=== PATIENT | male | born 1930 | race Caucasian/White ===

== ENCOUNTER 2016-05-21 07:30 | Outpatient (CLI) | payer MEDICARE, OTHER ==
[2016-05-21 08:12] LABS: Anion Gap 10 mmol/L (10-20); BUN (Urea Nitrogen) 11 mg/dL (8.4-25.7); Calc. Creatinine Clearance 0 mL/min (70-130); Calcium 7.8 mg/dL (7.8-10.44); Carbon Dioxide 31 mmol/L (23-31); Chloride 102 mmol/L (98-107); Estimated GFR-MDRD 35
[2016-05-21 08:30] LABS: #Eosinphils 0.2 thou/uL (0.0-0.7); #Lymphocytes 1.3 thou/uL (1.20-3.40); #Monocytes 0.5 thou/uL (0.11-0.59); #Neutrophils 2.2 thou/uL (1.40-6.50); %Eosinophils 3.9 % (0.0-10.0); %Monocytes 12.1 % (0.0-10.0); Hematocrit 27.4 % (42.0-52.0); Mean Platelet Volume 5.9 fL (7.4-10.4); Red Blood Cell (RBC) Count 2.71 mill/uL (4.70-6.10); White Blood Cell (WBC) Count 4.2 thou/uL (4.8-10.8)
== END 2016-05-21 07:31 | disposition home or self-care (01) ==
LOC: NAV LABSP 07:30
PROVIDERS: ATTEND Internal Medicine
DX: E11.9 Type 2 diabetes mellitus without complications (principal); I10 Essential (primary) hypertension
CPT/HCPCS: 36415; 80048; 85025

== ENCOUNTER 2016-05-28 10:31 | Outpatient (CLI) | payer MEDICARE, OTHER ==
[2016-05-28 11:20] LABS: #Basophils 0.1 thou/uL (0.0-0.2); #Eosinphils 0.3 thou/uL (0.0-0.7); #Lymphocytes 1.3 thou/uL (1.20-3.40); #Monocytes 0.5 thou/uL (0.11-0.59); %Basophils 1.5 % (0.0-1.0); %Eosinophils 6.4 % (0.0-10.0); Hematocrit 28.6 % (42.0-52.0); Mean Platelet Volume 5.6 fL (7.4-10.4); Red Blood Cell (RBC) Count 2.79 mill/uL (4.70-6.10)
[2016-05-28 11:31] LABS: Anion Gap 14 mmol/L (10-20); BUN (Urea Nitrogen) 14 mg/dL (8.4-25.7); Calc. Creatinine Clearance 0 mL/min (70-130); Calcium 7.9 mg/dL (7.8-10.44); Carbon Dioxide 29 mmol/L (23-31); Chloride 103 mmol/L (98-107); Estimated GFR-MDRD 33
== END 2016-05-28 10:32 | disposition home or self-care (01) ==
LOC: NAV LABSP 10:31
PROVIDERS: ATTEND Internal Medicine
DX: E11.9 Type 2 diabetes mellitus without complications (principal); I10 Essential (primary) hypertension
CPT/HCPCS: 36415; 80048; 85025

== ENCOUNTER 2016-06-04 10:12 | Outpatient (CLI) | payer MEDICARE, OTHER ==
[2016-06-04 10:48] LABS: #Eosinphils 0.2 thou/uL (0.0-0.7); #Lymphocytes 1.1 thou/uL (1.20-3.40); #Monocytes 0.4 thou/uL (0.11-0.59); #Neutrophils 1.9 thou/uL (1.40-6.50); %Eosinophils 5.6 % (0.0-10.0); %Lymphocytes 29.8 % (21.0-51.0); %Monocytes 10.8 % (0.0-10.0); Red Blood Cell (RBC) Count 2.87 mill/uL (4.70-6.10); White Blood Cell (WBC) Count 3.7 thou/uL (4.8-10.8)
[2016-06-04 11:00] LABS: Anion Gap 12 mmol/L (10-20); BUN (Urea Nitrogen) 14 mg/dL (8.4-25.7); Calc. Creatinine Clearance 0 mL/min (70-130); Carbon Dioxide 32 mmol/L (23-31); Chloride 102 mmol/L (98-107); Estimated GFR-MDRD 32
== END 2016-06-04 10:13 | disposition home or self-care (01) ==
LOC: NAV LABSP 10:12
PROVIDERS: ATTEND Internal Medicine
DX: E11.9 Type 2 diabetes mellitus without complications (principal); I10 Essential (primary) hypertension
CPT/HCPCS: 36415; 80048; 85025

== ENCOUNTER 2016-06-11 08:42 | Outpatient (CLI) | payer MEDICARE, OTHER ==
[2016-06-11 09:46] LABS: #Eosinphils 0.4 thou/uL (0.0-0.7); #Monocytes 0.5 thou/uL (0.11-0.59); #Neutrophils 2.7 thou/uL (1.40-6.50); %Eosinophils 7.9 % (0.0-10.0); %Lymphocytes 21.2 % (21.0-51.0); %Monocytes 11.4 % (0.0-10.0); Hematocrit 29.4 % (42.0-52.0); Mean Platelet Volume 6.1 fL (7.4-10.4); Red Blood Cell (RBC) Count 2.91 mill/uL (4.70-6.10); White Blood Cell (WBC) Count 4.5 thou/uL (4.8-10.8)
[2016-06-11 09:57] LABS: Anion Gap 12 mmol/L (10-20); BUN (Urea Nitrogen) 15 mg/dL (8.4-25.7); Calc. Creatinine Clearance 0 mL/min (70-130); Carbon Dioxide 30 mmol/L (23-31); Chloride 102 mmol/L (98-107); Estimated GFR-MDRD 32
== END 2016-06-11 08:43 | disposition home or self-care (01) ==
LOC: NAV LAB 08:42
PROVIDERS: ATTEND Internal Medicine
DX: E11.9 Type 2 diabetes mellitus without complications (principal); I10 Essential (primary) hypertension
CPT/HCPCS: 36415; 80048; 85025

== ENCOUNTER 2016-06-18 08:43 | Outpatient (CLI) | payer MEDICARE, OTHER ==
[2016-06-18 09:27] LABS: #Basophils 0.1 thou/uL (0.0-0.2); #Eosinphils 0.3 thou/uL (0.0-0.7); #Lymphocytes 1.1 thou/uL (1.20-3.40); #Monocytes 0.5 thou/uL (0.11-0.59); #Neutrophils 2.1 thou/uL (1.40-6.50); %Basophils 1.5 % (0.0-1.0); %Eosinophils 7.8 % (0.0-10.0); %Lymphocytes 27.6 % (21.0-51.0); %Monocytes 11.7 % (0.0-10.0); Hematocrit 29.6 % (42.0-52.0); Mean Platelet Volume 5.2 fL (7.4-10.4); Red Blood Cell (RBC) Count 3.01 mill/uL (4.70-6.10); White Blood Cell (WBC) Count 4.1 thou/uL (4.8-10.8)
[2016-06-18 09:36] LABS: Anion Gap 15 mmol/L (10-20); BUN (Urea Nitrogen) 15 mg/dL (8.4-25.7); Calc. Creatinine Clearance 0 mL/min (70-130); Calcium 8.2 mg/dL (7.8-10.44); Carbon Dioxide 28 mmol/L (23-31); Chloride 101 mmol/L (98-107); Estimated GFR-MDRD 31
== END 2016-06-18 08:44 | disposition home or self-care (01) ==
LOC: NAV LABSP 08:43
PROVIDERS: ATTEND Internal Medicine
DX: E11.9 Type 2 diabetes mellitus without complications (principal); I10 Essential (primary) hypertension
CPT/HCPCS: 36415; 80048; 85025

== ENCOUNTER 2016-06-25 08:22 | Outpatient (CLI) | payer MEDICARE, OTHER ==
[2016-06-25 09:33] LABS: #Eosinphils 0.3 thou/uL (0.0-0.7); #Monocytes 0.6 thou/uL (0.11-0.59); %Basophils 0.9 % (0.0-1.0); %Eosinophils 6.4 % (0.0-10.0); %Lymphocytes 20.8 % (21.0-51.0); Hematocrit 30.9 % (42.0-52.0); Mean Platelet Volume 5.4 fL (7.4-10.4); Red Blood Cell (RBC) Count 3.12 mill/uL (4.70-6.10)
[2016-06-25 09:42] LABS: Anion Gap 15 mmol/L (10-20); BUN (Urea Nitrogen) 14 mg/dL (8.4-25.7); Calc. Creatinine Clearance 0 mL/min (70-130); Calcium 8.5 mg/dL (7.8-10.44); Carbon Dioxide 30 mmol/L (23-31); Chloride 102 mmol/L (98-107); Estimated GFR-MDRD 29
== END 2016-06-25 08:23 | disposition home or self-care (01) ==
LOC: NAV LABSP 08:22
PROVIDERS: ATTEND Internal Medicine
DX: E11.9 Type 2 diabetes mellitus without complications (principal); I10 Essential (primary) hypertension
CPT/HCPCS: 36415; 80048; 85025

== ENCOUNTER 2016-06-30 12:00 | Emergency (ER) | payer MEDICARE, OTHER ==
[2016-06-30 12:34] LABS: #Basophils 0.1 thou/uL (0.0-0.2); #Eosinphils 0.3 thou/uL (0.0-0.7); #Lymphocytes 0.9 thou/uL (1.20-3.40); #Monocytes 0.6 thou/uL (0.11-0.59); #Neutrophils 5.8 thou/uL (1.40-6.50); %Basophils 0.8 % (0.0-1.0); %Eosinophils 4.1 % (0.0-10.0); %Lymphocytes 11.1 % (21.0-51.0); %Monocytes 8.3 % (0.0-10.0); Hematocrit 34.1 % (42.0-52.0); Mean Platelet Volume 5.5 fL (7.4-10.4); Red Blood Cell (RBC) Count 3.49 mill/uL (4.70-6.10); White Blood Cell (WBC) Count 7.7 thou/uL (4.8-10.8)
[2016-06-30 12:52] LABS: Prothrombin Time 14.7 SEC (12.0-14.7)
[2016-06-30 12:53] LABS: ALT (SGPT) 12 U/L (0-55); AST (SGOT) 16 U/L (5-34); Alkaline Phosphatase 84 U/L (40-150); Anion Gap 19 mmol/L (10-20); BUN (Urea Nitrogen) 22 mg/dL (8.4-25.7); Bilirubin, Total 0.4 mg/dL (0.2-1.2); CK (CPK) 93 U/L (30-200); Calc. Creatinine Clearance 0 mL/min (70-130); Calcium 8.5 mg/dL (7.8-10.44); Carbon Dioxide 23 mmol/L (23-31); Chloride 101 mmol/L (98-107); Estimated GFR-MDRD 17; Globulin 3.3 g/dL (2.4-3.5); PTT 33.3 SEC (22.9-36.1); Protein, Total 6.5 g/dL (5.8-8.1)
[2016-06-30 12:55] LABS: Troponin I 0.102 ng/mL (< 0.028)
[2016-06-30] MEDS ORDERED: Morphine Sulfate 2 MG/ML SYRINGE ONE (13:03)
[2016-06-30] MEDS ORDERED: Enoxaparin Sodium 100 MG/ML SYRINGE ONE (15:15)
--- NOTE | 2016-06-30 15:39 | RAD ---
FRONTAL VIEW CHEST: Comparison: 04-17-16 Clinical history: Shortness of breath. FINDINGS: Tunneled right side vascular catheter is again seen. There is stable prominence to the cardiomedias tinal silhouette and prominence of the lungs is present without lobar consolidation. Prior linear d ensities over the right lower lung zone have resolved. There is mild blunting of the left lateral c ostophrenic sulcus, grossly stable in appearance. IMPRESSION: 1. Evidence of CHF. 2. Resolution of prior right basilar atelectasis. 3. Mild blunting of the left lateral costophrenic sulci could related to small volume pleural fluid . POS: [facility]
== END 2016-06-30 16:52 | disposition short-term general hospital (02) ==
LOC: NAV ERS 12:00
DX: I13.2 Hypertensive heart and chronic kidney disease with heart failure and with stage 5 chronic kidney disease, or end stage renal disease (principal); N18.6 End stage renal disease; I50.9 Heart failure, unspecified; E78.5 Hyperlipidemia, unspecified; E11.9 Type 2 diabetes mellitus without complications; Z87.891 Personal history of nicotine dependence; Z79.899 Other long term (current) drug therapy
CPT/HCPCS: 71010; 80053; 82553; 83880; 84484; 85025; 85610; 85730; 93005; 96372; J1650; J2270

== ENCOUNTER 2016-07-16 06:59 | Outpatient (CLI) | payer MEDICARE, OTHER ==
[2016-07-16 08:53] LABS: Prothrombin Time 38.4 SEC (12.0-14.7)
[2016-07-16 09:56] LABS: #Basophils 0.1 thou/uL (0.0-0.2); #Eosinphils 0.2 thou/uL (0.0-0.7); #Lymphocytes 1.5 thou/uL (1.20-3.40); #Monocytes 0.5 thou/uL (0.11-0.59); #Neutrophils 2.3 thou/uL (1.40-6.50); %Basophils 1.1 % (0.0-1.0); %Eosinophils 4.3 % (0.0-10.0); %Lymphocytes 33.5 % (21.0-51.0); %Monocytes 10.4 % (0.0-10.0); Mean Platelet Volume 5.1 fL (7.4-10.4); Red Blood Cell (RBC) Count 3.52 mill/uL (4.70-6.10); White Blood Cell (WBC) Count 4.5 thou/uL (4.8-10.8)
[2016-07-16 10:07] LABS: Anion Gap 17 mmol/L (10-20); BUN (Urea Nitrogen) 19 mg/dL (8.4-25.7); Calc. Creatinine Clearance 0 mL/min (70-130); Calcium 8.4 mg/dL (7.8-10.44); Carbon Dioxide 25 mmol/L (23-31); Chloride 101 mmol/L (98-107); Estimated GFR-MDRD 27
== END 2016-07-16 07:00 | disposition home or self-care (01) ==
LOC: NAV LABSP 06:59
PROVIDERS: ATTEND Internal Medicine
DX: Z51.81 Encounter for therapeutic drug level monitoring (principal); Z79.01 Long term (current) use of anticoagulants; I10 Essential (primary) hypertension; E11.9 Type 2 diabetes mellitus without complications; Z79.899 Other long term (current) drug therapy
CPT/HCPCS: 36415; 80048; 85025; 85610

== ENCOUNTER 2016-07-17 09:24 | Outpatient (CLI) | payer MEDICARE, OTHER ==
[2016-07-17 09:56] LABS: Prothrombin Time 46.1 SEC (12.0-14.7)
== END 2016-07-17 09:25 | disposition home or self-care (01) ==
LOC: NAV LABSP 09:24
PROVIDERS: ATTEND Internal Medicine
DX: Z79.01 Long term (current) use of anticoagulants (principal); Z79.899 Other long term (current) drug therapy
CPT/HCPCS: 36415; 85610

== ENCOUNTER 2016-07-18 07:10 | Outpatient (CLI) | payer MEDICARE, OTHER ==
[2016-07-18 09:53] LABS: Prothrombin Time 43.8 SEC (12.0-14.7)
== END 2016-07-18 07:11 | disposition home or self-care (01) ==
LOC: NAV LABSP 07:10
PROVIDERS: ATTEND Internal Medicine
DX: E11.9 Type 2 diabetes mellitus without complications (principal); I10 Essential (primary) hypertension; Z79.01 Long term (current) use of anticoagulants
CPT/HCPCS: 36415; 85610

== ENCOUNTER 2016-07-19 10:07 | Outpatient (CLI) | payer MEDICARE, OTHER ==
[2016-07-19 12:30] LABS: Prothrombin Time 36.1 SEC (12.0-14.7)
== END 2016-07-19 10:08 | disposition home or self-care (01) ==
LOC: NAV LABSP 10:07
PROVIDERS: ATTEND Internal Medicine
DX: K29.90 Gastroduodenitis, unspecified, without bleeding (principal)
CPT/HCPCS: 36415; 85610

== ENCOUNTER 2016-07-22 08:16 | Outpatient (CLI) | payer MEDICARE, OTHER ==
[2016-07-22 08:57] LABS: Anion Gap 18 mmol/L (10-20); BUN (Urea Nitrogen) 35 mg/dL (8.4-25.7); Calc. Creatinine Clearance 0 mL/min (70-130); Calcium 8.6 mg/dL (7.8-10.44); Carbon Dioxide 23 mmol/L (23-31); Chloride 104 mmol/L (98-107); Estimated GFR-MDRD 15
[2016-07-22 09:01] LABS: #Eosinphils 0.3 thou/uL (0.0-0.7); #Lymphocytes 1.4 thou/uL (1.20-3.40); #Monocytes 0.5 thou/uL (0.11-0.59); #Neutrophils 2.7 thou/uL (1.40-6.50); %Eosinophils 6.2 % (0.0-10.0); %Lymphocytes 28.1 % (21.0-51.0); %Monocytes 9.7 % (0.0-10.0); Hematocrit 33.1 % (42.0-52.0); Mean Platelet Volume 5.4 fL (7.4-10.4); White Blood Cell (WBC) Count 4.8 thou/uL (4.8-10.8)
[2016-07-22 09:10] LABS: Prothrombin Time 17.5 SEC (12.0-14.7)
== END 2016-07-22 08:17 | disposition home or self-care (01) ==
LOC: NAV LABSP 08:16
PROVIDERS: ATTEND Internal Medicine
DX: E11.9 Type 2 diabetes mellitus without complications (principal); I10 Essential (primary) hypertension
CPT/HCPCS: 36415; 80048; 85025; 85610

== ENCOUNTER 2016-07-23 08:40 | Outpatient (CLI) | payer MEDICARE, OTHER ==
[2016-07-23 09:54] LABS: Prothrombin Time 14.6 SEC (12.0-14.7)
== END 2016-07-23 08:41 | disposition home or self-care (01) ==
LOC: NAV LABSP 08:40
PROVIDERS: ATTEND Internal Medicine
DX: K29.90 Gastroduodenitis, unspecified, without bleeding (principal)
CPT/HCPCS: 36415; 85610

== ENCOUNTER 2016-07-24 07:33 | Outpatient (CLI) | payer MEDICARE, OTHER ==
[2016-07-24 11:02] LABS: Prothrombin Time 15.8 SEC (12.0-14.7)
== END 2016-07-24 07:34 | disposition home or self-care (01) ==
LOC: NAV LABSP 07:33
PROVIDERS: ATTEND Internal Medicine
DX: K29.90 Gastroduodenitis, unspecified, without bleeding (principal)
CPT/HCPCS: 36415; 85610

== ENCOUNTER 2016-07-25 07:30 | Outpatient (CLI) | payer MEDICARE, OTHER ==
[2016-07-25 13:43] LABS: Prothrombin Time 19.4 SEC (12.0-14.7)
== END 2016-07-25 07:31 | disposition home or self-care (01) ==
LOC: NAV LABSP 07:30
PROVIDERS: ATTEND Internal Medicine
DX: E11.9 Type 2 diabetes mellitus without complications (principal); I10 Essential (primary) hypertension; I74.9 Embolism and thrombosis of unspecified artery; K29.90 Gastroduodenitis, unspecified, without bleeding
CPT/HCPCS: 36415; 85610

== ENCOUNTER 2016-07-26 07:48 | Outpatient (CLI) | payer MEDICARE, OTHER ==
[2016-07-26 10:06] LABS: Prothrombin Time 20.5 SEC (12.0-14.7)
== END 2016-07-26 07:49 | disposition home or self-care (01) ==
LOC: NAV LABSP 07:48
PROVIDERS: ATTEND Internal Medicine
DX: K29.90 Gastroduodenitis, unspecified, without bleeding (principal)
CPT/HCPCS: 36415; 85610

== ENCOUNTER 2016-07-27 18:03 | Outpatient (CLI) | payer MEDICARE, OTHER ==
[2016-07-27 18:13] LABS: Prothrombin Time 23.1 SEC (12.0-14.7)
== END 2016-07-27 18:04 | disposition home or self-care (01) ==
LOC: NAV LABSP 18:03
PROVIDERS: ATTEND Internal Medicine
DX: K29.90 Gastroduodenitis, unspecified, without bleeding (principal)
CPT/HCPCS: 36415; 85610

== ENCOUNTER 2016-07-28 11:20 | Outpatient (CLI) | payer MEDICARE, OTHER ==
[2016-07-28 12:11] LABS: Prothrombin Time 23.8 SEC (12.0-14.7)
== END 2016-07-28 11:21 | disposition home or self-care (01) ==
LOC: NAV LABSP 11:20
PROVIDERS: ATTEND Internal Medicine
DX: K29.90 Gastroduodenitis, unspecified, without bleeding (principal)
CPT/HCPCS: 36415; 85610

== ENCOUNTER 2016-07-29 09:03 | Outpatient (CLI) | payer MEDICARE, OTHER ==
[2016-07-29 12:00] LABS: Prothrombin Time 46.1 SEC (12.0-14.7)
== END 2016-07-29 09:04 | disposition home or self-care (01) ==
LOC: NAV LABSP 09:03
PROVIDERS: ATTEND Internal Medicine
DX: Z51.81 Encounter for therapeutic drug level monitoring (principal); Z79.01 Long term (current) use of anticoagulants
CPT/HCPCS: 85610

== ENCOUNTER 2016-07-30 07:37 | Outpatient (CLI) | payer MEDICARE, OTHER ==
[2016-07-30 08:40] LABS: #Basophils 0.1 thou/uL (0.0-0.2); #Eosinphils 0.4 thou/uL (0.0-0.7); #Lymphocytes 1.3 thou/uL (1.20-3.40); #Monocytes 0.5 thou/uL (0.11-0.59); #Neutrophils 2.5 thou/uL (1.40-6.50); %Basophils 1.2 % (0.0-1.0); %Eosinophils 9.2 % (0.0-10.0); %Lymphocytes 27.5 % (21.0-51.0); %Monocytes 9.5 % (0.0-10.0); Hematocrit 37.5 % (42.0-52.0); Mean Platelet Volume 5.4 fL (7.4-10.4); Red Blood Cell (RBC) Count 3.81 mill/uL (4.70-6.10); White Blood Cell (WBC) Count 4.8 thou/uL (4.8-10.8)
[2016-07-30 08:43] LABS: Prothrombin Time 27.5 SEC (12.0-14.7)
[2016-07-30 08:50] LABS: Anion Gap 16 mmol/L (10-20); BUN (Urea Nitrogen) 43 mg/dL (8.4-25.7); Calc. Creatinine Clearance 0 mL/min (70-130); Calcium 8.7 mg/dL (7.8-10.44); Carbon Dioxide 26 mmol/L (23-31); Chloride 101 mmol/L (98-107); Estimated GFR-MDRD 16
== END 2016-07-30 07:38 | disposition home or self-care (01) ==
LOC: NAV LABSP 07:37
PROVIDERS: ATTEND Internal Medicine
DX: E11.9 Type 2 diabetes mellitus without complications (principal); I74.9 Embolism and thrombosis of unspecified artery; I10 Essential (primary) hypertension; Z79.01 Long term (current) use of anticoagulants
CPT/HCPCS: 36415; 80048; 85025; 85610

== ENCOUNTER 2016-07-31 10:37 | Outpatient (CLI) | payer MEDICARE, OTHER ==
[2016-07-31 11:04] LABS: Prothrombin Time 24.3 SEC (12.0-14.7)
== END 2016-07-31 10:38 | disposition home or self-care (01) ==
LOC: NAV LABSP 10:37
PROVIDERS: ATTEND Internal Medicine
DX: K29.90 Gastroduodenitis, unspecified, without bleeding (principal)
CPT/HCPCS: 36415; 85610

== ENCOUNTER 2016-08-05 10:51 | Outpatient (CLI) | payer MEDICARE, OTHER ==
[2016-08-05 11:18] LABS: Prothrombin Time 23.1 SEC (12.0-14.7)
== END 2016-08-05 10:52 | disposition home or self-care (01) ==
LOC: NAV LABSP 10:51
PROVIDERS: ATTEND Internal Medicine
DX: Z51.81 Encounter for therapeutic drug level monitoring (principal); Z79.01 Long term (current) use of anticoagulants
CPT/HCPCS: 36415; 85610

== ENCOUNTER 2016-08-06 07:26 | Outpatient (CLI) | payer MEDICARE, OTHER ==
[2016-08-06 09:29] LABS: Anion Gap 16 mmol/L (10-20); BUN (Urea Nitrogen) 35 mg/dL (8.4-25.7); Calc. Creatinine Clearance 0 mL/min (70-130); Calcium 8.2 mg/dL (7.8-10.44); Carbon Dioxide 24 mmol/L (23-31); Chloride 103 mmol/L (98-107); Estimated GFR-MDRD 17; Glucose 95 mg/dL (83-110); Potassium 3.9 mmol/L (3.5-5.1); Sodium 139 mmol/L (136-145)
[2016-08-06 11:22] LABS: INR-International Normal Ratio 2.1; Prothrombin Time 24.3 SEC (12.0-14.7)
== END 2016-08-06 07:27 | disposition home or self-care (01) ==
LOC: NAV LABSP 07:26
PROVIDERS: ATTEND Internal Medicine
DX: E11.9 Type 2 diabetes mellitus without complications (principal); I10 Essential (primary) hypertension
CPT/HCPCS: 36415; 80048; 85610

== ENCOUNTER 2016-08-07 07:40 | Outpatient (CLI) | payer MEDICARE, OTHER ==
[2016-08-07 08:29] LABS: #Eosinphils 0.5 thou/uL (0.0-0.7); #Lymphocytes 0.8 thou/uL (1.20-3.40); #Monocytes 0.4 thou/uL (0.11-0.59); %Basophils 1.2 % (0.0-1.0); %Eosinophils 12.7 % (0.0-10.0); %Lymphocytes 20.6 % (21.0-51.0); %Monocytes 11.8 % (0.0-10.0); %Neutrophils 53.6 % (42.0-75.0); Hemoglobin 11.6 g/dL (14.0-18.0); Mean Corpuscular HGB CONC 31.5 g/dL (32.0-36.0); Mean Corpuscular Hemoglobin 31.3 pg (27.0-31.0); Mean Corpuscular Volume 99.5 fl (80.0-94.0); Mean Platelet Volume 5.1 fL (7.4-10.4); Platelet Count 146 thou/uL (130-400); RBC Distribution Width 15.6 % (11.5-14.5); Red Blood Cell (RBC) Count 3.71 mill/uL (4.70-6.10); White Blood Cell (WBC) Count 3.7 thou/uL (4.8-10.8)
[2016-08-07 09:40] LABS: INR-International Normal Ratio 2.1
== END 2016-08-07 07:41 | disposition home or self-care (01) ==
LOC: NAV LABSP 07:40
PROVIDERS: ATTEND Internal Medicine
DX: I10 Essential (primary) hypertension (principal); Z79.01 Long term (current) use of anticoagulants
CPT/HCPCS: 36415; 85025; 85610

== ENCOUNTER 2016-08-08 11:14 | Outpatient (CLI) | payer MEDICARE, OTHER ==
[2016-08-08 11:47] LABS: Prothrombin Time 46.1 SEC (12.0-14.7)
[2016-08-08 11:51] LABS: INR-International Normal Ratio 5.2
== END 2016-08-08 11:15 | disposition home or self-care (01) ==
LOC: NAVSJIPCSP 11:14
PROVIDERS: ATTEND Internal Medicine
DX: Z51.81 Encounter for therapeutic drug level monitoring (principal); Z79.899 Other long term (current) drug therapy
CPT/HCPCS: 36415

== ENCOUNTER 2016-08-10 17:06 | Outpatient (CLI) | payer MEDICARE, OTHER ==
[2016-08-10 17:37] LABS: INR-International Normal Ratio 1.5
== END 2016-08-10 17:07 | disposition home or self-care (01) ==
LOC: NAV LABSP 17:06
PROVIDERS: ATTEND Internal Medicine
DX: K29.90 Gastroduodenitis, unspecified, without bleeding (principal)
CPT/HCPCS: 36415; 85610

== ENCOUNTER 2016-08-11 10:16 | Outpatient (CLI) | payer MEDICARE, OTHER ==
[2016-08-11 10:32] LABS: INR-International Normal Ratio 1.4; Prothrombin Time 17.7 SEC (12.0-14.7)
[2016-08-11 10:37] LABS: Follow-up Coag Comp? YES; Follow-up Result - Coag REPORT FAXED
== END 2016-08-11 10:17 | disposition home or self-care (01) ==
LOC: NAV LABSP 10:16
PROVIDERS: ATTEND Internal Medicine
DX: Z51.81 Encounter for therapeutic drug level monitoring (principal); Z79.01 Long term (current) use of anticoagulants
CPT/HCPCS: 36415; 85610

== ENCOUNTER 2016-08-12 08:39 | Outpatient (CLI) | payer MEDICARE, OTHER ==
[2016-08-12 09:38] LABS: INR-International Normal Ratio 1.5; Prothrombin Time 18.3 SEC (12.0-14.7)
[2016-08-12 15:14] LABS: #Eosinphils 0.6 thou/uL (0.0-0.7); #Lymphocytes 1.7 thou/uL (1.20-3.40); #Monocytes 0.5 thou/uL (0.11-0.59); #Neutrophils 1.6 thou/uL (1.40-6.50); %Basophils 0.8 % (0.0-1.0); %Eosinophils 13.5 % (0.0-10.0); %Lymphocytes 37.7 % (21.0-51.0); %Monocytes 10.9 % (0.0-10.0); %Neutrophils 37.2 % (42.0-75.0); Hemoglobin 11.9 g/dL (14.0-18.0); Mean Corpuscular HGB CONC 31.5 g/dL (32.0-36.0); Mean Corpuscular Hemoglobin 32.2 pg (27.0-31.0); Mean Platelet Volume 6.8 fL (7.4-10.4); Platelet Count 135 thou/uL (130-400); RBC Distribution Width 15.3 % (11.5-14.5); White Blood Cell (WBC) Count 4.4 thou/uL (4.8-10.8)
[2016-08-12 15:28] LABS: Anion Gap 14 mmol/L (10-20); BUN (Urea Nitrogen) 30 mg/dL (8.4-25.7); Calc. Creatinine Clearance 0 mL/min (70-130); Calcium 8.2 mg/dL (7.8-10.44); Carbon Dioxide 26 mmol/L (23-31); Chloride 106 mmol/L (98-107); Estimated GFR-MDRD 19; Glucose 100 mg/dL (83-110); Potassium 3.7 mmol/L (3.5-5.1); Sodium 142 mmol/L (136-145)
== END 2016-08-12 08:40 | disposition home or self-care (01) ==
LOC: NAV LABSP 08:39
PROVIDERS: ATTEND Internal Medicine
DX: K29.90 Gastroduodenitis, unspecified, without bleeding (principal); E11.9 Type 2 diabetes mellitus without complications; I10 Essential (primary) hypertension
CPT/HCPCS: 36415; 80048; 85025; 85610

== ENCOUNTER 2016-08-13 07:40 | Outpatient (CLI) | payer MEDICARE, OTHER ==
[2016-08-13 10:00] LABS: Prothrombin Time 46.1 SEC (12.0-14.7)
[2016-08-13 10:01] LABS: INR-International Normal Ratio 5.2
== END 2016-08-13 07:41 | disposition home or self-care (01) ==
LOC: NAV LABSP 07:40
PROVIDERS: ATTEND Internal Medicine
DX: K29.90 Gastroduodenitis, unspecified, without bleeding (principal)
CPT/HCPCS: 36415; 85610

== ENCOUNTER 2016-08-14 07:17 | Outpatient (CLI) | payer MEDICARE, OTHER ==
[2016-08-14 08:07] LABS: INR-International Normal Ratio 1.5; Prothrombin Time 18.6 SEC (12.0-14.7)
== END 2016-08-14 07:18 | disposition home or self-care (01) ==
LOC: NAV LABSP 07:17
PROVIDERS: ATTEND Internal Medicine
DX: Z51.81 Encounter for therapeutic drug level monitoring (principal); Z79.01 Long term (current) use of anticoagulants
CPT/HCPCS: 36415; 85610

== ENCOUNTER 2016-08-16 07:32 | Outpatient (CLI) | payer MEDICARE, OTHER ==
[2016-08-16 10:56] LABS: Anisocytosis MODERATE=16-30 cells (100X) (0-5/hpf); Eosinophils 6 % (0-10); Hemoglobin 11.7 g/dL (14.0-18.0); Hypochromia SLIGHT = 6-15 cells (100X) (0-5/hpf); Lymphocytes 46 % (21-51); MDiff Complete? YES; Mean Corpuscular HGB CONC 31.7 g/dL (32.0-36.0); Mean Corpuscular Hemoglobin 31.9 pg (27.0-31.0); Mean Platelet Volume 6.2 fL (7.4-10.4); Monocytes 2 % (0-10); Neutrophil 45 % (42-75); PLT Morphology Comment Appears Adequate; Platelet Count 122 thou/uL (130-400); RBC Distribution Width 14.9 % (11.5-14.5); Red Blood Cell (RBC) Count 3.68 mill/uL (4.70-6.10); White Blood Cell (WBC) Count 4.8 thou/uL (4.8-10.8)
== END 2016-08-16 07:33 | disposition home or self-care (01) ==
LOC: NAV LABSP 07:32
PROVIDERS: ATTEND Internal Medicine
DX: K29.90 Gastroduodenitis, unspecified, without bleeding (principal)
CPT/HCPCS: 36415; 85025

== ENCOUNTER 2016-08-20 07:22 | Outpatient (CLI) | payer MEDICARE, OTHER ==
[2016-08-20 08:09] LABS: #Basophils 0.1 thou/uL (0.0-0.2); #Eosinphils 0.6 thou/uL (0.0-0.7); #Lymphocytes 1.2 thou/uL (1.20-3.40); #Monocytes 0.5 thou/uL (0.11-0.59); #Neutrophils 2.2 thou/uL (1.40-6.50); %Basophils 1.3 % (0.0-1.0); %Eosinophils 12.8 % (0.0-10.0); %Lymphocytes 26.4 % (21.0-51.0); %Monocytes 10.4 % (0.0-10.0); %Neutrophils 49.1 % (42.0-75.0); Hemoglobin 11.1 g/dL (14.0-18.0); Mean Corpuscular HGB CONC 31.8 g/dL (32.0-36.0); Mean Corpuscular Hemoglobin 32.3 pg (27.0-31.0); Mean Platelet Volume 5.9 fL (7.4-10.4); Platelet Count 138 thou/uL (130-400); RBC Distribution Width 14.8 % (11.5-14.5); Red Blood Cell (RBC) Count 3.45 mill/uL (4.70-6.10); White Blood Cell (WBC) Count 4.5 thou/uL (4.8-10.8)
[2016-08-20 08:23] LABS: Anion Gap 16 mmol/L (10-20); BUN (Urea Nitrogen) 41 mg/dL (8.4-25.7); Calc. Creatinine Clearance 0 mL/min (70-130); Calcium 8.6 mg/dL (7.8-10.44); Carbon Dioxide 23 mmol/L (23-31); Chloride 103 mmol/L (98-107); Estimated GFR-MDRD 15; Glucose 101 mg/dL (83-110); Potassium 3.7 mmol/L (3.5-5.1); Sodium 138 mmol/L (136-145)
[2016-08-20 08:39] LABS: INR-International Normal Ratio 1.5; Prothrombin Time 18.2 SEC (12.0-14.7)
== END 2016-08-20 07:23 | disposition home or self-care (01) ==
LOC: NAV LABSP 07:22
PROVIDERS: ATTEND Internal Medicine
DX: E11.9 Type 2 diabetes mellitus without complications (principal); I10 Essential (primary) hypertension
CPT/HCPCS: 36415; 80048; 85025; 85610

== ENCOUNTER 2016-08-21 08:15 | Outpatient (CLI) | payer MEDICARE, OTHER ==
[2016-08-21 09:55] LABS: INR-International Normal Ratio 1.6; Prothrombin Time 19.5 SEC (12.0-14.7)
== END 2016-08-21 08:16 | disposition home or self-care (01) ==
LOC: NAV LABSP 08:15
PROVIDERS: ATTEND Internal Medicine
DX: K29.90 Gastroduodenitis, unspecified, without bleeding (principal)
CPT/HCPCS: 36415; 85610

== ENCOUNTER 2016-08-22 07:43 | Outpatient (CLI) | payer MEDICARE, OTHER ==
[2016-08-22 08:57] LABS: INR-International Normal Ratio 1.9; Prothrombin Time 22.4 SEC (12.0-14.7)
== END 2016-08-22 07:44 | disposition home or self-care (01) ==
LOC: NAV LABSP 07:43
PROVIDERS: ATTEND Internal Medicine
DX: K29.90 Gastroduodenitis, unspecified, without bleeding (principal)
CPT/HCPCS: 36415; 85610

== ENCOUNTER 2016-08-23 07:16 | Outpatient (CLI) | payer MEDICARE, OTHER ==
[2016-08-23 07:55] LABS: Prothrombin Time 23.5 SEC (12.0-14.7)
== END 2016-08-23 07:17 | disposition home or self-care (01) ==
LOC: NAV LABSP 07:16
PROVIDERS: ATTEND Internal Medicine
DX: K29.90 Gastroduodenitis, unspecified, without bleeding (principal)
CPT/HCPCS: 36415; 85610

== ENCOUNTER 2016-08-27 07:17 | Outpatient (CLI) | payer MEDICARE, OTHER ==
[2016-08-27 10:45] LABS: INR-International Normal Ratio 2.7; Prothrombin Time 29.5 SEC (12.0-14.7)
[2016-08-27 10:46] LABS: #Eosinphils 0.5 thou/uL (0.0-0.7); #Lymphocytes 1.6 thou/uL (1.20-3.40); #Monocytes 0.4 thou/uL (0.11-0.59); #Neutrophils 1.7 thou/uL (1.40-6.50); %Eosinophils 12.4 % (0.0-10.0); %Lymphocytes 37.5 % (21.0-51.0); %Monocytes 8.9 % (0.0-10.0); %Neutrophils 40.2 % (42.0-75.0); Hemoglobin 10.6 g/dL (14.0-18.0); Mean Corpuscular Hemoglobin 31.7 pg (27.0-31.0); Mean Platelet Volume 5.8 fL (7.4-10.4); Platelet Count 131 thou/uL (130-400); RBC Distribution Width 13.8 % (11.5-14.5); Red Blood Cell (RBC) Count 3.36 mill/uL (4.70-6.10); White Blood Cell (WBC) Count 4.2 thou/uL (4.8-10.8)
[2016-08-27 11:01] LABS: Anion Gap 15 mmol/L (10-20); BUN (Urea Nitrogen) 38 mg/dL (8.4-25.7); Calc. Creatinine Clearance 0 mL/min (70-130); Calcium 8.5 mg/dL (7.8-10.44); Carbon Dioxide 26 mmol/L (23-31); Chloride 106 mmol/L (98-107); Estimated GFR-MDRD 17; Glucose 94 mg/dL (83-110); Iron 62 ug/dL (65-175); Potassium 3.7 mmol/L (3.5-5.1); Sodium 143 mmol/L (136-145)
[2016-08-27 18:38] LABS: Iron Binding Capacity, Total 236 mcg/dL (261-462)
[2016-08-27 19:09] LABS: Folate (Folic Acid) 16.9 ng/mL (7.0-31.4)
== END 2016-08-27 07:18 | disposition home or self-care (01) ==
LOC: NAV LABSP 07:17
PROVIDERS: ATTEND Internal Medicine Gastroenterology
DX: D64.89 Other specified anemias (principal); E11.9 Type 2 diabetes mellitus without complications; K29.90 Gastroduodenitis, unspecified, without bleeding; I10 Essential (primary) hypertension; Z99.2 Dependence on renal dialysis
CPT/HCPCS: 36415; 80048; 82607; 82728; 82746; 83540; 83550; 85025; 85610

== ENCOUNTER 2016-09-02 07:21 | Outpatient (CLI) | payer MEDICARE, OTHER ==
[2016-09-02 09:12] LABS: INR-International Normal Ratio 3.3; Prothrombin Time 35.4 SEC (12.0-14.7)
== END 2016-09-02 07:22 | disposition home or self-care (01) ==
LOC: NAV LABSP 07:21
PROVIDERS: ATTEND Internal Medicine
DX: Z51.81 Encounter for therapeutic drug level monitoring (principal); K29.90 Gastroduodenitis, unspecified, without bleeding; E11.9 Type 2 diabetes mellitus without complications; I10 Essential (primary) hypertension; Z79.01 Long term (current) use of anticoagulants
CPT/HCPCS: 36415; 85610

== ENCOUNTER 2016-09-03 07:09 | Outpatient (CLI) | payer MEDICARE, OTHER ==
[2016-09-03 08:04] LABS: #Basophils 0.1 thou/uL (0.0-0.2); #Eosinphils 0.5 thou/uL (0.0-0.7); #Lymphocytes 1.4 thou/uL (1.20-3.40); #Monocytes 0.5 thou/uL (0.11-0.59); #Neutrophils 2.3 thou/uL (1.40-6.50); %Basophils 1.3 % (0.0-1.0); %Eosinophils 10.6 % (0.0-10.0); %Lymphocytes 29.5 % (21.0-51.0); %Monocytes 10.3 % (0.0-10.0); %Neutrophils 48.3 % (42.0-75.0); Hemoglobin 10.9 g/dL (14.0-18.0); INR-International Normal Ratio 3.1; Mean Corpuscular HGB CONC 32.9 g/dL (32.0-36.0); Mean Corpuscular Hemoglobin 31.9 pg (27.0-31.0); Mean Corpuscular Volume 96.7 fl (80.0-94.0); Mean Platelet Volume 5.7 fL (7.4-10.4); Platelet Count 146 thou/uL (130-400); Prothrombin Time 33.6 SEC (12.0-14.7); RBC Distribution Width 14.2 % (11.5-14.5); Red Blood Cell (RBC) Count 3.42 mill/uL (4.70-6.10); White Blood Cell (WBC) Count 4.8 thou/uL (4.8-10.8)
[2016-09-03 08:11] LABS: Anion Gap 16 mmol/L (10-20); BUN (Urea Nitrogen) 37 mg/dL (8.4-25.7); Calc. Creatinine Clearance 0 mL/min (70-130); Calcium 8.5 mg/dL (7.8-10.44); Carbon Dioxide 24 mmol/L (23-31); Chloride 105 mmol/L (98-107); Estimated GFR-MDRD 14; Glucose 111 mg/dL (83-110); Potassium 3.7 mmol/L (3.5-5.1); Sodium 141 mmol/L (136-145)
== END 2016-09-03 07:10 | disposition home or self-care (01) ==
LOC: NAV LABSP 07:09
PROVIDERS: ATTEND Internal Medicine
DX: Z51.81 Encounter for therapeutic drug level monitoring (principal); Z79.01 Long term (current) use of anticoagulants
CPT/HCPCS: 80048; 85025; 85610

== ENCOUNTER 2016-09-17 07:20 | Outpatient (CLI) | payer MEDICARE, OTHER ==
[2016-09-17 08:28] LABS: INR-International Normal Ratio 1.2; Prothrombin Time 15.1 SEC (12.0-14.7)
[2016-09-17 08:38] LABS: ALT (SGPT) 9 U/L (0-55); AST (SGOT) 19 U/L (5-34); Albumin 2.5 g/dL (3.4-4.8); Alkaline Phosphatase 70 U/L (40-150); Anion Gap 24 mmol/L (10-20); BUN (Urea Nitrogen) 77 mg/dL (8.4-25.7); Bilirubin, Total 0.8 mg/dL (0.2-1.2); Calc. Creatinine Clearance 0 mL/min (70-130); Calcium 7.8 mg/dL (7.8-10.44); Carbon Dioxide 19 mmol/L (23-31); Chloride 92 mmol/L (98-107); Estimated GFR-MDRD 10; Globulin 2.9 g/dL (2.4-3.5); Glucose 153 mg/dL (83-110); Protein, Total 5.4 g/dL (5.8-8.1); Sodium 131 mmol/L (136-145)
[2016-09-17 09:16] LABS: Band 10 % (5-11); Hemoglobin 15.4 g/dL (14.0-18.0); Lymphocytes 7 % (21-51); MDiff Complete? YES; Mean Corpuscular HGB CONC 32.5 g/dL (32.0-36.0); Mean Corpuscular Hemoglobin 31.1 pg (27.0-31.0); Mean Corpuscular Volume 95.7 fl (80.0-94.0); Mean Platelet Volume 5.9 fL (7.4-10.4); Monocytes 4 % (0-10); Neutrophil 79 % (42-75); PLT Morphology Comment Appears Adequate; Platelet Count 187 thou/uL (130-400); RBC Distribution Width 14.7 % (11.5-14.5); Red Blood Cell (RBC) Count 4.95 mill/uL (4.70-6.10); White Blood Cell (WBC) Count 17.4 thou/uL (4.8-10.8)
== END 2016-09-17 07:21 | disposition home or self-care (01) ==
LOC: NAV LABSP 07:20
PROVIDERS: ATTEND Internal Medicine
DX: Z51.81 Encounter for therapeutic drug level monitoring (principal); K29.90 Gastroduodenitis, unspecified, without bleeding; I10 Essential (primary) hypertension; E11.9 Type 2 diabetes mellitus without complications; Z79.01 Long term (current) use of anticoagulants
CPT/HCPCS: 36415; 80053; 85025; 85610